=== PATIENT | male | born 1980 | race Caucasian/White ===

== ENCOUNTER 2019-06-11 01:17 | Emergency (ER) | payer OTHER, SELFPAY ==
[2019-06-11] VITALS (8 sets, daily range): BP systolic 127–178; BP diastolic 67–110; PULSE 48–58; RESP 16–20; TEMP 36.6; O2SAT 94–99; BMI 36.9
--- NOTE | 2019-06-11 01:20 | ED_ITS ---
Entered by Irina Lee, acting as scribe for Denisha Herman HPI - Abdominal Pain General: Chief Complaint: Abdominal Pain Stated Complaint: POSS KIDNEY STONE Time Seen by Provider: 06/11/19 01:20 History of Present Illness: HPI narrative: 38 yo m came to the er for rt flank pain. Pt states that he is sure he has a kidney stone, nausea and vomiting. Pt states that he has had them in the past. MD elicited complaint: abdominal pain and flank pain Pertinent past history: kidney stones Onset (ago): hour(s) Pain Consistency: constant Location: RLQ and R flank Severity: moderate Quality: other (pain) Radiation: none (lower abd and lower back) and back Migration to: no migration Exacerbating factors: nothing Relieving factors: nothing Associated Symptoms: Reports nausea and vomiting; Denies chills, dysuria, fever(s), hematuria and syncope Review of Systems General: Reports: other (negative unless marked) Const: Denies: fever, chills, body aches, fatigue, malaise or diaphoresis Eyes: Denies: change in vision or blurry vision ENMT: Denies: throat pain, painful swallowing, hoarseness, ear pain, ear discharge, Change in hearing or nasal discharge Card: Denies: chest pain, palpitations, irregular heart rhythm, syncope, pre- syncope, shortness of breath on exertion or shortness of breath when lying down Resp: Denies: shortness of breath, productive cough, non-productive cough, wheezing, coughing up blood or chest congestion GI: Reports: nausea and vomiting : Denies: flank pain, difficulty urinating, painful urination, urinary frequency, urinary urgency, decreased urine ouput, urinary incontinence or blood in urine Musc: Denies: neck pain, back pain, extremity pain, extremity swelling, joint pain, joint swelling, joint warmth or joint stiffness Skin/Breast: Denies: rash, skin tenderness or yellow skin Neuro: Denies: headache, numbness in extremities, weakness in extremities, changes in sensation, lack of coordination, difficulty walking, dizziness, vertigo or confusion Endo: Denies: excessive thirst, tired all the time, cold intolerance, excessive sweating, flushing or hot flashes Tony/Lymph: Denies: easy bruising, easy bleeding, petechiae or enlarged lymph nodes All/Imm: Denies: hives, throat swelling, tongue swelling, facial swelling or acute wheezing PFSH ED PFSH: Statuses (acute, chronic, etc) shown below reflect problem list status as previously entered and may not be historically accurate Medical History (Updated 06/11/19 @ 04:28 by Denisha Herman) Kidney stones (Acute) Social History Smoking and tobacco status: never smoked Physical Exam Const: COMMON NORMALS: no apparent distress, oriented x3, no limitations, healthy appearing and well nourished EXAM LIMITATIONS: no altered mental status GENERAL APPEARANCE: cooperative, well kempt and well developed ORIENTATION/CONSCIOUSNESS: Yes awake HENMT: COMMON NORMALS: normocephalic, head/scalp atraumatic, hearing grossly normal bilaterally, external ears normal, EAC's normal, external nose normal and moist oral mucous membranes HEAD & SCALP: normal to inspection, normocephalic and atraumatic FACE & SINUS: normal facial exam and face symmetric NOSE: external nose normal and nares normal EXTERNAL EAR: Yes external ears normal EXTERNAL AUDITORY CANAL: EAC's normal MOUTH: oral and palatal mucosa normal and tongue normal Eye: COMMON NORMALS: PERRL, EOMs intact bilaterally, conjunctivae normal and no scleral icterus GENERAL EYE: normal appearance of both eyes and normal light reflex CONJUNCTIVA: Yes conjunctivae normal SCLERA: sclerae normal CORNEA: Yes corneas normal PUPIL: Yes PERRL DIRECT OPHTHALMOSCOPY: Yes normal light reflex Neck/C-Spine: COMMON NORMALS: full ROM, no lymphadenopathy, supple, no meningeal signs and no JVD GENERAL: Yes normal visual inspection and Yes trachea midline CERVICAL SPINE: Yes cervical ROM normal Chest: COMMONS NORMALS: inspection of chest normal and palpation of chest normal Resp: COMMON NORMALS: normal respiratory effort, no retractions, no use of accessory muscles and clear to auscultation bilaterally EFFORT & INSPECTION: Yes able to speak in complete sentences AUSCULTATION: clear to auscultation bilaterally Cardio: COMMON NORMALS: no JVD, regular rate, regular rhythm, S1 normal heart sound, S2 normal heart sound, no gallops, no clicks, no murmurs and no rub JUGULAR VENOUS DISTENTION: no JVD RATE: regular rate RHYTHM: regular rhythm HEART SOUNDS: S1 normal and S2 normal GI: COMMON NORMALS: soft to palpation, non-tender, no hepatosplenomegaly and no masses INSPECTION: Yes normal to inspection PALPATION: Yes soft and Yes no hepatosplenomegaly : COMMON NORMALS: Yes no CVA tenderness BLADDER/KIDNEY EXAM: Yes no CVA tenderness Back/Pelvis: COMMON NORMALS: no CVA tenderness, thoracic and lumbar spine normal to inspection, no thoracic nor lumbar tenderness and thoraco-lumbar ROM normal Extremity: COMMON NORMALS: normal to inspection, full ROM, normal capillary refill, no joint enlargement, no clubbing, cyanosis or edema and no calf tenderness Neuro: COMMON NORMALS: oriented x3, CN's II-XII intact bilaterally, moves all extremities, no focal motor deficits and no sensory deficits noted MENINGEAL SIGNS: Yes no meningeal signs Psych: COMMON NORMALS: mental status grossly normal, thought process normal, cooperative, affect normal, speech normal and activity/motor behavior normal APPEARANCE: Yes well kempt SPEECH: Yes normal speech THOUGHT PROCESS: normal thought process Skin: COMMON NORMALS: no rashes or lesions noted, skin turgor normal, no jaundice, no petechiae and no mottling GENERAL SKIN EXAM: no rashes or lesions noted and turgor normal Course Vital Signs: Vital signs: Vital Signs Temperature 97.9 F 06/11/19 01:27 Pulse Rate 55 L 06/11/19 05:54 Respiratory Rate 16 06/11/19 05:54 Blood Pressure 127/78 06/11/19 05:54 Pulse Oximetry 97 06/11/19 05:54 MDM - Abdominal Pain MDM Narrative: Medical decision making narrative: Patient comes in with right flank pain has a stone that is amenable to passing. He has no sign of infection and is not vomiting. I will go and discharge him home to follow-up with Dr. Nicholson he has no questions or concerns. Lab Data: Labs: Lab Results 06/11/19 06/11/19 06/11/19 Range/Units 01:33 01:33 03:38 WBC 7.7 (4.0-10.0) 10^3/ uL RBC 5.69 H (4.1-5.3) 10^6/u L Hgb 15.4 (11.7-16.6) g/dL Hct 45.6 (42.0-52.0) % MCV 80.1 (80-94) fL MCH 27.1 L (28.0-34.0) pg MCHC 33.8 (30.0-36.0) g/dL RDW 12.1 (12.1-15.1) % Plt Count 293 (130-400) 10^3/c mm MPV 8.6 (7.4-10.4) fL Neut % (Auto) 44.4 % Lymph % (Auto) 36.4 % [place] % (Auto) 15.3 % Eos % (Auto) 3.1 % Baso % (Auto) 0.4 % Neut # (Auto) 3.4 (1.8-7.7) 10^3/u L Lymph # (Auto) 2.8 (0.8-4.8) 10^3/u L [place] # (Auto) 1.2 H (0.2-0.9) 10^3/u L Eos # (Auto) 0.2 (0.0-0.8) 10^3/u L Baso # (Auto) 0.0 (0.0-0.1) 10^3/u L Nucleated RBC % (a uto) 0 % Nucleated RBCs # 0.0 /100WBC Sodium 135 L (136-145) mmol/L Potassium 3.4 L (3.5-5.1) mmol/L Chloride 98 (98-107) mmol/L Carbon Dioxide 23 (22-29) mmol/L Anion Gap 17.4 (5-19) BUN 13 (6-20) mg/dL Creatinine 0.9 (0.7-1.2) mg/dL GFR Calculation 93.9 (90-130) mL/min Glucose 121 H (74-109) mg/dL Calcium 9.4 (8.5-10.5) mg/dL Total Bilirubin 0.5 (0.15-1.2) mg/dL AST 26 (0-40) U/L ALT 23 (0-41) U/L Alkaline Phosphata se 66 (40-130) IU/L Total Protein 7.6 (6.6-8.7) g/dL Albumin 4.3 (3.5-5.2) g/dL Globulin 3.3 (1.3-4.6) g/dL Lipase 31 (13-60) U/L Urine Color Dark yellow (Yellow) Urine Appearance Hazy A (CLEAR) Urine pH 5 (5-7) Ur Specific Gravit y 1.025 (1.005-1.030) Urine Protein Trace (Negative) Urine Glucose (UA) Norm (Normal) Urine Ketones Negative (Negative) Urine Occult Blood 3+ H (Negative) Urine Nitrate Negative (Negative) Urine Bilirubin Neg (NEGATIVE) Urine Urobilinogen Norm (Negative) mg/dL Ur Leukocyte Génesis ase Negative (Negative) Urine RBC 40-50 H (0-2) /hpf Urine WBC 0-4 H (0-5) /hpf Ur Squamous Epith Cells 0-4 H (0-5) Urine Bacteria 4+ H (NONE) Hyaline Casts 0-4 H Urine Mucus 2+ Imaging Data ^: CT Abd/Pel: Radiologist's impression: [place] [address] CT Scan Report Signed Patient: Sylvester Asencio Unit #: [id number] : 1980 Age/Sex: 38 / M ADM Date: 06/11/19 Loc: ER Room/Bed: Attending Dr: Ordering Provider/Ordering MD: Denisha Herman DO Date of Service: 06/11/19 Procedure(s): CT kidney stone 46719 Accession Number(s): [id number] Report Number: [id number] PROCEDURE INFORMATION: Exam: CT Abdomen And Pelvis Without Contrast Exam date and time: 06/11/2019 1:45 AM Age: 38 years old Clinical indication: Abdominal pain; Flank; Right; Additional info: Flank/abdominal pain TECHNIQUE: Imaging protocol: Computed tomography of the abdomen and pelvis without contrast. Total DLP: 1933.33 mGy-cm Radiation optimization: All CT scans at this facility use at least one of these dose optimization techniques: automated exposure control; mA and/or kV adjustment per patient size (includes targeted exams where dose is matched to clinical indication); or iterative reconstruction. COMPARISON: CT Abdomen/Pelvis Renal [id number] 09/15/2016 10:19 AM FINDINGS: Lungs: Minimal stranding in the lung bases. No significant change in the 7 mm ovoid pleural-based density in the left lower lobe indicating a granuloma or focal scar. Liver: No suggestion of interval liver disease. Gallbladder and bile ducts: Still no calcified gallstones or biliary ductal dilatation. Pancreas: Continued fatty infiltration of the pancreatic head. Still no ductal dilatation. Spleen: Still no splenomegaly. Adrenals: Still no mass. Kidneys and ureters: Interval slight worsening of the mild right hydronephrosis and appearance of a small stone in the right lower kidney. Still no left hydronephrosis. Continued slight stranding in the perirenal fat bilaterally. Interval slight worsening of the right hydroureter and enlargement of the 3 x 2.2 mm stone in the distal right ureter. Stomach and bowel: Right adhesions still possible. No obstruction. Continued malrotation of the gut, although cecum still present in the right lower quadrant. No apparent mucosal thickening. Appendix: Still no appendicitis. Intraperitoneal space: Still no free air. Vasculature: Continued slight atherosclerosis. Still no aortic aneurysm. Lymph nodes: Interval slight enlargement of multiple mesenteric nodes. No new enlarged nodes elsewhere. Bladder: Unremarkable as visualized. Reproductive: Interval enlargement of the prostate to approximately 5 x 4.1 cm, with greater posterior protrusion of the right side of the prostate than on the left. Bones/joints: Stable compression fractures. Soft tissues: Interval increased prominence of the torturous vessels in the right inguinal canal suggesting possible development of a right varicocele. Continued small periumbilical hernia containing fat. CT/CT kidney stone [id number] IMPRESSION: 1. Interval enlargement of the 3 x 2.2 mm stone in the distal right ureter causing slight worsening of the right hydroureteronephrosis. Interval appearance of the small stone in the right lower kidney, also. 2. Possible interval development of a right varicocele. Interval prostatic enlargement, especially on the right. 3. Interval mesenteric adenopathy, significance unknown. Continued malrotation of the gut. Other findings detailed above. Radiation Dose CTDIVOL = (mGy): DLP = 1933.33 (mGy-cm) Dictated By: Mara Middleton MD Signed By: Mara Middleton MD Signed Date/Time: 06/11/19255 DD/ 3 Discharge Plan Discharge Patient Disposition: Home, Self-Care Clinical Impression: Kidney stones Condition: Stable Prescriptions: [place] 5-325 mg tablet 1 tab PO Q6H PRN (Reason: pain) 5 Days Qty: 20 RF: 0 Zofran 4 mg tablet 4 mg PO DAILY PRN (Reason: nausea and vomiting) 5 Days RF: 0 cefdinir 300 mg capsule 300 mg PO Q12H 10 Days Qty: 20 RF: 0 Discharge Orders: Discharge Order (Routine); Ordered 06/11/19 Ordered By: Denisha Herman Referrals: Dayne Nicholson MD [Physician] - 1-3 days Neel Camp MD [Family Provider] - Discharge Diet: Advance as tolerated Discharge Activity: Resume usual activity Patient Instructions: Kidney Stones (ED), Renal Colic (ED) Activity Restrictions/Additional Instructions: Please return to the ER immediately for any of the signs or symptoms listed on your discharge instruction sheets, worsening/changing of your symptoms, you are not getting better as quickly as expected, or for ANY other cause or concerns. Discharge Date/Time: 06/11/19 06:14 Coding Level of Care Code ED Corn Shucker for Chg Fwd Exam Problem Focused The documentation recorded by the Jesus alba Stephanie Lyn, accurately reflects the service I personally performed and the decisions made by Batsheva potter Eli N Jun 11, 2019 01:17
--- NOTE | 2019-06-11 01:26 | CTR_ITS ---
PROCEDURE INFORMATION: Exam: CT Abdomen And Pelvis Without Contrast Exam date and time: 06/11/2019 1:45 AM Age: 38 years old Clinical indication: Abdominal pain; Flank; Right; Additional info: Flank/abdominal pain TECHNIQUE: Imaging protocol: Computed tomography of the abdomen and pelvis without contrast. Total DLP: 1933.33 mGy-cm Radiation optimization: All CT scans at this facility use at least one of these dose optimization techniques: automated exposure control; mA and/or kV adjustment per patient size (includes targeted exams where dose is matched to clinical indication); or iterative reconstruction. COMPARISON: CT Abdomen/Pelvis Renal [id number] 09/15/2016 10:19 AM FINDINGS: Lungs: Minimal stranding in the lung bases. No significant change in the 7 mm ovoid pleural-based density in the left lower lobe indicating a granuloma or focal scar. Liver: No suggestion of interval liver disease. Gallbladder and bile ducts: Still no calcified gallstones or biliary ductal dilatation. Pancreas: Continued fatty infiltration of the pancreatic head. Still no ductal dilatation. Spleen: Still no splenomegaly. Adrenals: Still no mass. Kidneys and ureters: Interval slight worsening of the mild right hydronephrosis and appearance of a small stone in the right lower kidney. Still no left hydronephrosis. Continued slight stranding in the perirenal fat bilaterally. Interval slight worsening of the right hydroureter and enlargement of the 3 x 2.2 mm stone in the distal right ureter. Stomach and bowel: Right adhesions still possible. No obstruction. Continued malrotation of the gut, although cecum still present in the right lower quadrant. No apparent mucosal thickening. Appendix: Still no appendicitis. Intraperitoneal space: Still no free air. Vasculature: Continued slight atherosclerosis. Still no aortic aneurysm. Lymph nodes: Interval slight enlargement of multiple mesenteric nodes. No new enlarged nodes elsewhere. Bladder: Unremarkable as visualized. Reproductive: Interval enlargement of the prostate to approximately 5 x 4.1 cm, with greater posterior protrusion of the right side of the prostate than on the left. Bones/joints: Stable compression fractures. Soft tissues: Interval increased prominence of the torturous vessels in the right inguinal canal suggesting possible development of a right varicocele. Continued small periumbilical hernia containing fat. CT/CT kidney stone [id number] IMPRESSION: 1. Interval enlargement of the 3 x 2.2 mm stone in the distal right ureter causing slight worsening of the right hydroureteronephrosis. Interval appearance of the small stone in the right lower kidney, also. 2. Possible interval development of a right varicocele. Interval prostatic enlargement, especially on the right. 3. Interval mesenteric adenopathy, significance unknown. Continued malrotation of the gut. Other findings detailed above. Radiation Dose CTDIVOL = (mGy): DLP = 1933.33 (mGy-cm)
[2019-06-11 01:38] LABS: Basophils % 0.4 %; Eosinophils # 0.2 10^3/uL (0.0-0.8); Eosinophils % 3.1 %; Hematocrit 45.6 % (42.0-52.0); Hemoglobin 15.4 g/dL (11.7-16.6); Lymphocytes # 2.8 10^3/uL (0.8-4.8); Lymphocytes % 36.4 %; Mean Corpuscular HGB Conc 33.8 g/dL (30.0-36.0); Mean Corpuscular Hemoglobin 27.1 pg (28.0-34.0); Mean Corpuscular Volume 80.1 fL (80-94); Mean Platelet Volume 8.6 fL (7.4-10.4); Monocytes # 1.2 10^3/uL (0.2-0.9); Monocytes % 15.3 %; Neutrophils # 3.4 10^3/uL (1.8-7.7); Neutrophils % 44.4 %; Nucleated Red Blood Cells % 0 %; Platelet Count 293 10^3/cmm (130-400); Red Blood Count 5.69 10^6/uL (4.1-5.3); Red Cell Distribution Width 12.1 % (12.1-15.1); White Blood Count 7.7 10^3/uL (4.0-10.0)
[2019-06-11] MEDS: HYDROmorphone 1 mg/mL INJ 1 mL 0.5 MG IVP ×2 (01:45→02:09)
[2019-06-11] MEDS: ondansetron 2 mg/ML SDV 2 mL 4 MG IVP (01:47)
[2019-06-11] MEDS: sodium chloride 0.9% 1,000 ML 100 ML IV (01:47)
--- NOTE | 2019-06-11 01:52 | PC.NURSE ---
Introduced self to patient and initiated vital signs. Pt is A&O x 4 and agreeable. Pt states that the reason for the ER visit today is due to excessive perineal / flank pain. Pt states that pain is suspected to be a kidney stone since he has a history. Reassured patient of needs and will continue to monitor. Awaiting provider at bedside.
[2019-06-11 01:57] LABS: Alanine Aminotransferase 23 U/L (0-41); Albumin Level 4.3 g/dL (3.5-5.2); Alkaline Phosphatase 66 IU/L (40-130); Anion Gap 17.4 (5-19); Blood Urea Nitrogen 13 mg/dL (6-20); Calcium 9.4 mg/dL (8.5-10.5); Carbon Dioxide 23 mmol/L (22-29); Chloride 98 mmol/L (98-107); Globulin 3.3 g/dL (1.3-4.6); Glomerular Filtration Rate 93.9 mL/min (90-130); Glucose 121 mg/dL (74-109); Lipase 31 U/L (13-60); Potassium 3.4 mmol/L (3.5-5.1); Sodium 135 mmol/L (136-145); Total Bilirubin 0.5 mg/dL (0.15-1.2); Total Protein 7.6 g/dL (6.6-8.7)
[2019-06-11 03:22] LABS: Aspartate Amino Transferase 26 U/L (0-40)
[2019-06-11] MEDS: ketorolac 30 mg/mL INJ 10 MG IVP (03:54)
[2019-06-11 04:00] LABS: Bilirubin Urine Neg (NEGATIVE); Blood Urine 3+ (Negative); Glucose Urine UA Norm (Normal); Ketones Urine Negative (Negative); Leukocyte Esterase Urine Negative (Negative); Nitrate Urine Negative (Negative); Protein Urine Trace (Negative); Specific Gravity, Urine 1.025 (1.005-1.030); Urine Appearance Hazy (CLEAR); Urine Color Dark Yellow (Yellow); Urobilinogen Urine Norm (Negative); pH Urine 5 (5-7)
[2019-06-11 04:15] LABS: Bacteria Urine 4+; Mucus Urine 2+; RBC Urine 40-50 /hpf (0-2); Squamous Epithelial Cell Urine 0-4 (0-5); WBC Urine 0-4 /hpf (0-5)
[2019-06-11 04:16] LABS: Add Urine Culture? Yes; Hyaline Casts Urine 0-4
[2019-06-11] MEDS: HYDROcodone-acetaminophen 5-325 mg Tablet 1 TAB PO (06:00)
--- NOTE | 2019-06-12 13:13 | DCPLANNER ---
cancer registry manager had message to schedule a follow up appointment for patient with Dr. Nicholson. cancer registry manager called the office of Dr. Nicholson, spoke with Cinthia. cancer registry manager gave clinic patients information. cancer registry manager was told that patients information would be printed and given to Taylor for review. Clinic will call patient with appointment information, case finishing machine adjuster will call for appointment information.
--- NOTE | 2019-06-13 12:27 | DCPLANNER ---
Patient has a follow up appointment scheduled for , June 20, [address] at 7:[address] Nicholson, clinic will call patient with appointment information.
== END 2019-06-11 06:14 | disposition home or self-care (01) ==
PROVIDERS: Emergency Provider Emergency Medicine; Family Provider Family Medicine
DX: N20.0 Calculus of kidney (principal); Z87.442 Personal history of urinary calculi
CPT/HCPCS: 12001; 36415; 74176; 80053; 81001; 83690; 85025; 87086; 96374; 99283; 99284; J1170; J1885; J2405; J7030

== ENCOUNTER 2019-06-13 07:58 | Outpatient (CLI) | payer OTHER, SELFPAY ==
--- NOTE | 2019-06-13 08:00 | XR_ITS ---
WS: [id number] KUB, 06/13/2019 Clinical Data: KIDNEY STONE Comparison: CT abdomen and pelvis, 06/11/2019 Findings: No abnormal intraabdominal masses or calcifications are seen. There is no dilatated small bowel or ev idence of obstruction. There is a large amount of fecal material throughout the colon. XR/XR KUB [id number] Impression: Negative for definite renal or ureteral calculi.
== END 2019-06-13 07:59 | disposition home or self-care (01) ==
LOC: RAD 08:02
PROVIDERS: Family Provider Family Medicine; PCP Family Medicine; Visit Provider Urology
DX: N20.0 Calculus of kidney (principal)
CPT/HCPCS: 74018; 81001

== ENCOUNTER 2019-06-20 08:51 | Outpatient (CLI) | payer OTHER, SELFPAY ==
--- NOTE | 2019-06-20 08:45 | XR_ITS ---
WS: [id number] KUB, 06/20/2019 Clinical Data: calculus of ureter Comparison: KUB, 06/13/2019 Findings: No abnormal intraabdominal masses or calcifications are seen. There is no dilatated small bowel or ev idence of obstruction. There is a large amount of fecal material throughout the colon. There are phleboliths on the right si de of the true colon. XR/XR KUB 01905 Impression: Negative KUB.
== END 2019-06-20 08:52 | disposition home or self-care (01) ==
PROVIDERS: Family Provider Family Medicine; PCP Family Medicine; Visit Provider Urology
DX: N20.1 Calculus of ureter (principal)
CPT/HCPCS: 74018; 81001

== ENCOUNTER 2019-07-04 08:24 | Outpatient (CLI) | payer OTHER, SELFPAY ==
--- NOTE | 2019-07-04 08:15 | XR_ITS ---
WS: [id number] XR KUB [id number] REASON FOR EXAM: ureteral stone FINDINGS: Comparisons were made to June 20, 2019. There is again noted fecal stasis in the rectum and left colon. There is no definite stones in the region of the kidneys ureter and bladder. There is evidence of phleboliths on the right unchanged since previous exam. XR/XR KUB 04507 IMPRESSION: Fecal stasis. No definite calculi identified.
== END 2019-07-04 08:25 | disposition home or self-care (01) ==
PROVIDERS: Family Provider Family Medicine; PCP Family Medicine; Visit Provider Urology
DX: N20.1 Calculus of ureter (principal); K59.00 Constipation, unspecified
CPT/HCPCS: 74018; 81001

== ENCOUNTER 2021-03-31 07:33 | Emergency (ER) | payer OTHER, SELFPAY ==
--- NOTE | 2021-03-31 07:43 | ED_ITS ---
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 Patient is unsure of his last tetanus shot. Onset (ago): minute(s) Location: right and upper extremity (Fifth finger) Radiation: non-radiation Severity: mild Relieving factors: none Exacerbating factors: none Associated symptoms: Reports no associated symptoms PFSH ED PFSH: Medical History (Updated 03/31/21 @ 07:46 by Semaj Robledo DO) Kidney stones Right ureteral stone Spontaneously passed right distal ureteral stone June 2019. Stone risk reduction strategies going forward emphasized. Family History Mother Breast cancer Father Hyperlipidemia Social History (Updated 07/04/19 @ 09:18 by India Gillette RN) Smoking and tobacco status: never smoked Alcohol intake: current Alcohol intake frequency: holidays/special occasions only Marital status: Current occupational status: employed History of recent travel: No Physical Exam Extremity: OTHER: Avulsion flap laceration about 1 cm in length Minimal active bleeding Procedures Laceration Laceration 1: Site: hand (Right fifth finger) Side (If applicable): right Size (cm): 1 Description: flap Depth: simple, single layer Skin layer closed with: other (Dermabond) MDM - General Adult MDM Narrative: Medical decision making narrative: Direct pressure held. Tetanus was updated. Dermabond used to close wound wound dressed follow-up as needed no restrictions to work. Discharge Plan Discharge Patient Disposition: Home Clinical Impression: Laceration of finger of right hand Condition: Stable Prescriptions: No Action ibuprofen 200 mg capsule 200 mg PO Q6H PRNRF: 0 Discharge Orders: Discharge ED (Routine); Ordered 03/31/21 Ordered By: Semaj Robledo Referrals: Neel Camp MD [Primary Care Provider] - Discharge Diet: Usual diet Discharge Activity: Resume usual activity Patient Instructions: Opioid Safety Activity Restrictions/Additional Instructions: Follow-up with employee health as needed. Keep wound clean and dry and covered for the next 5 to 7 days. Return if there is any signs of infection. Coding Level of Care Code ED Plans Examiner for Dilmag Fwd
[2021-03-31] MEDS: tetanus-dipt-pertussis 0.5 mL SDV IM (08:05)
== END 2021-03-31 08:11 | disposition home or self-care (01) ==
PROVIDERS: Emergency Provider Family Medicine; PCP Family Medicine
DX: S61.216A Laceration without foreign body of right little finger without damage to nail, initial encounter (principal); W25.XXXA Contact with sharp glass, initial encounter; Z23 Encounter for immunization
CPT/HCPCS: 12001; 90471; 90715; 99281

== ENCOUNTER 2021-05-06 19:37 | Emergency (ER) | payer OTHER, SELFPAY ==
[2021-05-06 19:47] VITALS: BP 152/82; PULSE 81; RESP 16; TEMP 37.2; O2SAT 97; BMI 40.1
--- NOTE | 2021-05-06 19:53 | XRR_ITS ---
PROCEDURE INFORMATION: Exam: XR Chest Exam date and time: 05/06/2021 7:53 PM Age: 40 years old Clinical indication: Pain; Left-sided; Additional info: Cp TECHNIQUE: Imaging protocol: XR of the chest. Views: 1 view. COMPARISON: CR XR KUB [id number] 07/04/2019 8:32 AM FINDINGS: Lungs: Unremarkable. No consolidation. Pleural spaces: Unremarkable. No pleural effusion. No pneumothorax. Heart/Mediastinum: Unremarkable. No cardiomegaly. Bones/joints: Unremarkable. XR/XR chest 1V portable [id number] IMPRESSION: No acute findings.
--- NOTE | 2021-05-06 19:54 | ECG_ITS ---
[facility] Test Date: 2021-05-06 Pat Name: Sylvester Asencio Department: Room: Gender: Male Disability Counselor: : 1980 Requested By: Errol Mai Order Number: [id number] Johnson MD: Anjali Ro M.D. Measurements Intervals [place] Rate: 84 P: 27 IN: 159 QRS: 21 QRSD: 102 T: 36 QT: 343 QTc: 407 Interpretive Statements SINUS RHYTHM INCOMPLETE RIGHT BUNDLE BRANCH BLOCK [90+ ms QRS DURATION, TERMINAL R IN V1/V2, 40+ ms S IN I/aVL/V4/V5/V6] No previous ECG available for comparison Electronically Signed On 05-08-2021 17:11:25 FORMULATION TECHNICIAN by Anjali Ro M.D. [email or web address]
--- NOTE | 2021-05-06 20:27 | ED_ITS ---
Documented by User: DANIAL Wright 05/06/21 20:35 HPI - Chest Pain General: Chief Complaint: Chest Pain Stated Complaint: Chest Pain Time Seen by Provider: 05/06/21 20:19 History of Present Illness: HPI narrative: Patient is a 40-year-old male comes to the ED with chest pain. Patient says just prior to arrival he was at the movie theater's eating some popcorn having some soda and all of a sudden he had a very sharp and aching pain in his chest that was located on the left side of chest. Denies any diaphoresis, nausea or vomiting. Intense chest pain lasted for about 15 minutes. Now he says his chest pain is kind of a dull ache and a lot more mild. He has never had any chest pain like this before. He reports some increasing shortness of breath for the past 2 weeks as well. Denies any cough or hemoptysis. Patient denies any recent contacts with anybody with COVID-19 and he is fully vaccinated for COVID-19. Associated symptoms: Reports dyspnea (Increasing over the last 2 weeks.); Deny abdominal pain, fever(s), nausea, palpitations or vomiting Review of Systems Const: Denies: fever(s), chills or fatigue Eyes: Denies: change in vision or eye discomfort ENMT: Denies: throat pain, odynophagia, nasal discharge or nasal congestion Card: Reports: chest pain; Denies: palpitations, edema, swelling of feet/ankles, dyspnea on exertion or orthopnea Resp: Reports: dyspnea (Increasing over the last 2 weeks.); Denies: productive cough or non-productive cough GI: Denies: abdominal pain, nausea, vomiting, diarrhea, constipation or hematochezia : Denies: flank pain, difficulty urinating, dysuria or hematuria Musc: Denies: neck pain, back pain or extremity swelling Skin/Breast: Denies: rash or new lesions Neuro: Denies: headache(s), numbness in extremities or weakness in extremities [facility] ED PFSH: Medical History (Updated 05/07/21 @ 00:19 by Nehemiah Drake MD) Kidney stones Right ureteral stone Spontaneously passed right distal ureteral stone June 2019. Stone risk reduction strategies going forward emphasized. Family History Mother Breast cancer Father Hyperlipidemia Social History Smoking and tobacco status: never smoked Alcohol intake: current Alcohol intake frequency: holidays/special occasions only Marital status: Current occupational status: employed History of recent travel: No Physical Exam Const: COMMON NORMALS: no acute distress, patient oriented x3, healthy appearing and alert GENERAL APPEARANCE: cooperative and comfortable HENMT: COMMON NORMALS: normocephalic HEAD & SCALP: normocephalic MOUTH: Normal oral and palatal mucosa present THROAT: posterior oropharynx normal and uvula midline Neck/C-Spine: COMMON NORMALS: supple GENERAL: Yes normal visual inspection Resp: COMMON NORMALS: normal respiratory effort, No retractions, No use of accessory muscles and clear to auscultation bilaterally EFFORT & INSPECTION: Yes able to speak in complete sentences, No tachypneic, No respiratory distress and No labored AUSCULTATION: clear to auscultation bilaterally Cardio: COMMON NORMALS: regular rate, regular rhythm, S1 normal heart sound present, S2 normal heart sound present, No gallops present (Cardio), No clicks present (Cardio), No murmurs present (Cardio) and Peripheral pulses 2+ throughout RATE: regular rate RHYTHM: regular rhythm HEART SOUNDS: S1 normal heart sound present and S2 normal heart sound present PERIPHERAL PULSES: Peripheral pulses 2+ throughout GI: COMMON NORMALS: Normal to inspection, nondistended, normoactive bowel sounds present, Soft to palpation, non-tender and no masses PALPATION: Yes Soft to palpation : COMMON NORMALS: Yes no CVA tenderness BLADDER/KIDNEY EXAM: Yes no CVA tenderness Back/Pelvis: COMMON NORMALS: no CVA tenderness Extremity: COMMON NORMALS: normal to inspection Neuro: COMMON NORMALS: patient oriented x3 and moves all extremities SENSORIUM/ORIENTATION: Yes alert Skin: GENERAL SKIN EXAM: dry skin Course ED course: I performed initial history and physical exam of patient. Dr. Drake then took over care of patient and will be handling the rest of patient care and discharge plan. Vital Signs: Vital signs: Vital Signs Temperature 98.9 F 05/06/21 19:47 Pulse Rate 79 05/06/21 21:30 Respiratory Rate 18 05/06/21 21:30 Blood Pressure 124/85 05/06/21 21:30 Pulse Oximetry 98 05/06/21 21:30 MDM - Chest Pain Lab Data: Labs: Lab Results 05/06/21 05/06/21 05/06/21 21:30 21:30 21:30 WBC 7.8 10^3/uL 10^3/ uL (4.0-10.0) RBC 5.72 10^6/uL H 10 ^6/uL (4.1-5.3) Hgb 15.8 g/dL g/dL (11.7-16.6) Hct 47.0 % % (42.0-52.0) MCV 82.2 fl fl (80-94) MCH 27.6 pg L pg (28.0-34.0) MCHC 33.6 g/dL g/dL (30.0-36.0) RDW 12.3 % % (12.1-15.1) Plt Count 323 10^3/cmm 10^3 /cmm (130-400) MPV 8.8 fL fL (7.4-10.4) Neut % (Auto) 59.5 % % Lymph % (Auto) 27.3 % % [place] % (Auto) 9.8 % % Eos % (Auto) 2.4 % % Baso % (Auto) 0.5 % % Neut # (Auto) 4.61 10^3/uL 10^3 /uL (1.8-7.7) Lymph # (Auto) 2.1 10^3/uL 10^3/ uL (0.8-4.8) [place] # (Auto) 0.8 10^3/uL 10^3/ uL (0.2-0.9) Eos # (Auto) 0.2 10^3/uL 10^3/ uL (0.0-0.8) Baso # (Auto) 0.0 10^3/uL 10^3/ uL (0.0-0.1) Nucleated RBC % (a uto) 0 % % Nucleated RBCs # 0.0 /100WBC /100W BC D-Dimer Sodium 138 mmol/L mmol/L (136-145) Potassium 3.8 mmol/L mmol/L (3.5-5.1) Chloride 103 mmol/L mmol/L (98-107) Carbon Dioxide 22 mmol/L mmol/L (22-29) Anion Gap 16.8 (5-19) BUN 7 mg/dL mg/dL (6-20) Creatinine 0.8 mg/dL mg/dL (0.7-1.2) GFR Calculation 106.5 mL/min mL/m in (90-130) Glucose 99 mg/dL mg/dL (65-115) Calculated Osmolal ity 284 mOsm/kg L mOs m/kg (285-295) Calcium 8.5 mg/dL mg/dL (8.5-10.5) Total Bilirubin 0.3 mg/dL mg/dL (0.15-1.2) AST 26 U/L U/L (0-40) ALT 37 U/L U/L (0-41) Alkaline Phosphata se 60 IU/L IU/L (40-130) Troponin T Baselin e 6 ng/L ng/L (0-15) Troponin T 120 Min jackson Delta Troponin T Total Protein 7.4 g/dL g/dL (6.6-8.7) Albumin 4.1 g/dL g/dL (3.5-5.2) Globulin 3.3 g/dL g/dL (1.3-4.6) 05/06/21 05/06/21 21:30 23:35 WBC RBC Hgb Hct MCV MCH MCHC RDW Plt Count MPV Neut % (Auto) Lymph % (Auto) [place] % (Auto) Eos % (Auto) Baso % (Auto) Neut # (Auto) Lymph # (Auto) [place] # (Auto) Eos # (Auto) Baso # (Auto) Nucleated RBC % (a uto) Nucleated RBCs # D-Dimer <= 0.27 ug/mIFEU ug/mIFEU (0-0.59) Sodium Potassium Chloride Carbon Dioxide Anion Gap BUN Creatinine GFR Calculation Glucose Calculated Osmolal ity Calcium Total Bilirubin AST ALT Alkaline Phosphata se Troponin T Baselin e Troponin T 120 Min jackson 6.00 ng/L ng/L (0-15) Delta Troponin T 0 ABS# ABS# (0-10) Total Protein Albumin Globulin Discharge Plan Discharge Patient Disposition: Home Clinical Impression: Chest pain Condition: Stable Prescriptions: No Action ibuprofen 200 mg capsule 200 mg PO Q6H PRNRF: 0 Discharge Orders: Discharge ED (Routine); Ordered 05/07/21 Ordered By: Nehemiah Drake Referrals: Neel Camp MD [Primary Care Provider] - Discharge Diet: Advance as tolerated Discharge Activity: Resume usual activity Patient Instructions: Chest Pain (ED) Coding Level of Care Code ED Superintendent Menagerie for Ahsely Fwd Exam Comprehensive Documented by User: Nehemiah Drake MD 05/07/21 00:24 HPI - Chest Pain General: Chief Complaint: Chest Pain Stated Complaint: Chest Pain Time Seen by Provider: 05/06/21 20:19 PFSH ED PFSH: Medical History (Updated 05/07/21 @ 00:19 by Nehemiah Drake MD) Kidney stones Right ureteral stone Spontaneously passed right distal ureteral stone June 2019. Stone risk reduction strategies going forward emphasized. Family History Mother Breast cancer Father Hyperlipidemia Social History Smoking and tobacco status: never smoked Alcohol intake: current Alcohol intake frequency: holidays/special occasions only Marital status: Current occupational status: employed History of recent travel: No Course Vital Signs: Vital signs: Vital Signs Temperature 98.9 F 05/06/21 19:47 Pulse Rate 79 05/06/21 21:30 Respiratory Rate 18 05/06/21 21:30 Blood Pressure 124/85 05/06/21 21:30 Pulse Oximetry 98 05/06/21 21:30 MDM - Chest Pain MDM Narrative: Medical decision making narrative: Patient presents for chest pains atypical in nature is been pain-free here initial repeat troponins are both negative chest x-ray is negative D-dimer is negative no signs of pulmonary embolism or acute coronary syndrome. Patient has no signs of dissection. He does have appoint with his PCP next week on Monday on he likely needs an outpatient stress test he is return if worsening. Lab Data: Labs: Lab Results 05/06/21 05/06/21 05/06/21 21:30 21:30 21:30 WBC 7.8 10^3/uL 10^3/ uL (4.0-10.0) RBC 5.72 10^6/uL H 10 ^6/uL (4.1-5.3) Hgb 15.8 g/dL g/dL (11.7-16.6) Hct 47.0 % % (42.0-52.0) MCV 82.2 fl fl (80-94) MCH 27.6 pg L pg (28.0-34.0) MCHC 33.6 g/dL g/dL (30.0-36.0) RDW 12.3 % % (12.1-15.1) Plt Count 323 10^3/cmm 10^3 /cmm (130-400) MPV 8.8 fL fL (7.4-10.4) Neut % (Auto) 59.5 % % Lymph % (Auto) 27.3 % % [place] % (Auto) 9.8 % % Eos % (Auto) 2.4 % % Baso % (Auto) 0.5 % % Neut # (Auto) 4.61 10^3/uL 10^3 /uL (1.8-7.7) Lymph # (Auto) 2.1 10^3/uL 10^3/ uL (0.8-4.8) [place] # (Auto) 0.8 10^3/uL 10^3/ uL (0.2-0.9) Eos # (Auto) 0.2 10^3/uL 10^3/ uL (0.0-0.8) Baso # (Auto) 0.0 10^3/uL 10^3/ uL (0.0-0.1) Nucleated RBC % (a uto) 0 % % Nucleated RBCs # 0.0 /100WBC /100W BC D-Dimer Sodium 138 mmol/L mmol/L (136-145) Potassium 3.8 mmol/L mmol/L (3.5-5.1) Chloride 103 mmol/L mmol/L (98-107) Carbon Dioxide 22 mmol/L mmol/L (22-29) Anion Gap 16.8 (5-19) BUN 7 mg/dL mg/dL (6-20) Creatinine 0.8 mg/dL mg/dL (0.7-1.2) GFR Calculation 106.5 mL/min mL/m in (90-130) Glucose 99 mg/dL mg/dL (65-115) Calculated Osmolal ity 284 mOsm/kg L mOs m/kg (285-295) Calcium 8.5 mg/dL mg/dL (8.5-10.5) Total Bilirubin 0.3 mg/dL mg/dL (0.15-1.2) AST 26 U/L U/L (0-40) ALT 37 U/L U/L (0-41) Alkaline Phosphata se 60 IU/L IU/L (40-130) Troponin T Baselin e 6 ng/L ng/L (0-15) Troponin T 120 Min jackson Delta Troponin T Total Protein 7.4 g/dL g/dL (6.6-8.7) Albumin 4.1 g/dL g/dL (3.5-5.2) Globulin 3.3 g/dL g/dL (1.3-4.6) 05/06/21 05/06/21 21:30 23:35 WBC RBC Hgb Hct MCV MCH MCHC RDW Plt Count MPV Neut % (Auto) Lymph % (Auto) [place] % (Auto) Eos % (Auto) Baso % (Auto) Neut # (Auto) Lymph # (Auto) [place] # (Auto) Eos # (Auto) Baso # (Auto) Nucleated RBC % (a uto) Nucleated RBCs # D-Dimer <= 0.27 ug/mIFEU ug/mIFEU (0-0.59) Sodium Potassium Chloride Carbon Dioxide Anion Gap BUN Creatinine GFR Calculation Glucose Calculated Osmolal ity Calcium Total Bilirubin AST ALT Alkaline Phosphata se Troponin T Baselin e Troponin T 120 Min jackson 6.00 ng/L ng/L (0-15) Delta Troponin T 0 ABS# ABS# (0-10) Total Protein Albumin Globulin Imaging Data^: CXR: Attestation: I personally reviewed and interpreted this imaging study as follows: My impression: [employer] [place] [address] XRay Report Signed Patient: Sylvester Asencio Unit #: [id number] : 1980 Age/Sex: 40 / M ADM Date: 05/06/21 Loc: ER Room/Bed: Attending Dr: Ordering Provider/Ordering MD: Errol Mai Date of Service: 05/06/21 Procedure(s): XR chest 1V portable [id number] Accession Number(s): [id number] Report Number: [id number] PROCEDURE INFORMATION: Exam: XR Chest Exam date and time: 05/06/2021 7:53 PM Age: 40 years old Clinical indication: Pain; Left-sided; Additional info: Cp TECHNIQUE: Imaging protocol: XR of the chest. Views: 1 view. COMPARISON: CR XR KUB [id number] 07/04/2019 8:32 AM FINDINGS: Lungs: Unremarkable. No consolidation. Pleural spaces: Unremarkable. No pleural effusion. No pneumothorax. Heart/Mediastinum: Unremarkable. No cardiomegaly. Bones/joints: Unremarkable. XR/XR chest 1V portable [id number] IMPRESSION: No acute findings. Dictated By: Eugene Morales Signed By: Eugene Morales Signed Date/Time: 05/06/212025 DD/ 52 EKG Data^: EKG 1: Attestation: I personally reviewed and interpreted this EKG as follows: EKG interpretation date: 05/06/21 EKG interpretation time: 19:45 Interpretation: nsr hr [address] or t wave abnormalities qrs 102 qtc 384 EKG 2: Attestation: I personally reviewed and interpreted this EKG as follows: EKG interpretation date: 05/06/21 EKG interpretation time: 22:00 Interpretation: Normal sinus rhythm heart rate [address] or T wave abnormalities QRS 102 QTC 377 Discharge Plan Discharge Patient Disposition: Home Clinical Impression: Chest pain Condition: Stable Prescriptions: No Action ibuprofen 200 mg capsule 200 mg PO Q6H PRNRF: 0 Discharge Orders: Discharge ED (Routine); Ordered 05/07/21 Ordered By: Nehemiah Drake Referrals: Neel Camp MD [Primary Care Provider] - Discharge Diet: Advance as tolerated Discharge Activity: Resume usual activity Patient Instructions: Chest Pain (ED) Coding Level of Care Code ED Superintendent Menagerie for Chg Fwd Exam Comprehensive
[2021-05-06] MEDS: aspirin 81 mg Chew Tablet 324 MG PO (21:27)
[2021-05-06 21:30] VITALS: BP 124/85; PULSE 79; RESP 18; O2SAT 98
[2021-05-06 21:45] LABS: Basophils % 0.5 %; Eosinophils # 0.2 10^3/uL (0.0-0.8); Eosinophils % 2.4 %; Hemoglobin 15.8 g/dL (11.7-16.6); Lymphocytes # 2.1 10^3/uL (0.8-4.8); Lymphocytes % 27.3 %; Mean Corpuscular HGB Conc 33.6 g/dL (30.0-36.0); Mean Corpuscular Hemoglobin 27.6 pg (28.0-34.0); Mean Corpuscular Volume 82.2 fl (80-94); Mean Platelet Volume 8.8 fL (7.4-10.4); Monocytes # 0.8 10^3/uL (0.2-0.9); Monocytes % 9.8 %; Neutrophils # 4.61 10^3/uL (1.8-7.7); Neutrophils % 59.5 %; Nucleated Red Blood Cells % 0 %; Platelet Count 323 10^3/cmm (130-400); Red Blood Count 5.72 10^6/uL (4.1-5.3); Red Cell Distribution Width 12.3 % (12.1-15.1); White Blood Count 7.8 10^3/uL (4.0-10.0)
--- NOTE | 2021-05-06 21:54 | ECG_ITS ---
[facility] Test Date: 2021-05-06 Pat Name: Sylvester Asencio Department: Room: Gender: Male Medical Research Associate: : 1980 Requested By: Errol Mai Order Number: [id number] Johnson MD: Anjali Ro M.D. Measurements Intervals [place] Rate: 73 P: 20 DE: 159 QRS: 27 QRSD: 102 T: 34 QT: 351 QTc: 388 Interpretive Statements SINUS RHYTHM POSSIBLE RIGHT VENTRICULAR CONDUCTION DELAY [RSR (QR) IN V1/V2] No previous ECG available for comparison Electronically Signed On 05-08-2021 17:15:43 PILL MAKER by Anjali Ro M.D. [email or web address] [email or web address] community hospitalCutefundgrand lake joint township district memorial hospital.T[employer]/store/OM/[id number]
[2021-05-06 21:58] LABS: D Dimer <= 0.27 ug/mIFEU (0-0.59)
[2021-05-06 22:05] LABS: Troponin(5th) Baseline 6 ng/L (0-15)
[2021-05-06 22:07] LABS: Alanine Aminotransferase 37 U/L (0-41); Albumin Level 4.1 g/dL (3.5-5.2); Alkaline Phosphatase 60 IU/L (40-130); Anion Gap 16.8 (5-19); Aspartate Amino Transferase 26 U/L (0-40); Blood Urea Nitrogen 7 mg/dL (6-20); Calcium 8.5 mg/dL (8.5-10.5); Carbon Dioxide 22 mmol/L (22-29); Chloride 103 mmol/L (98-107); Globulin 3.3 g/dL (1.3-4.6); Glomerular Filtration Rate 106.5 mL/min (90-130); Glucose 99 mg/dL (65-115); Osmolality Calculated 284 mOsm/kg (285-295); Potassium 3.8 mmol/L (3.5-5.1); Sodium 138 mmol/L (136-145); Total Bilirubin 0.3 mg/dL (0.15-1.2); Total Protein 7.4 g/dL (6.6-8.7)
[2021-05-07 00:04] LABS: Troponin 5 2HR Delta 0 ABS# (0-10)
[2021-05-07 00:25] VITALS: BP 122/81; PULSE 80; RESP 16; TEMP 37.1; O2SAT 97
== END 2021-05-07 00:51 | disposition home or self-care (01) ==
PROVIDERS: Physician Assistant; Emergency Provider Emergency Medicine; PCP Family Medicine
DX: R07.9 Chest pain, unspecified (principal)
CPT/HCPCS: 71045; 80053; 84484; 85025; 85378; 93005; 99284

== ENCOUNTER 2021-05-28 09:20 | Emergency (ER) | payer OTHER, SELFPAY ==
[2021-05-28 09:27] VITALS: BP 109/86; PULSE 99; RESP 18; TEMP 37.3; O2SAT 95; BMI 41.3
--- NOTE | 2021-05-28 09:39 | W.ED.COVID ---
HPI - COVID General: Chief Complaint: COVID symptoms Stated Complaint: COVID +/SOB,MUSCLE ACHES Time Seen by Provider: 05/28/21 09:23 Triage information: Has fever, cough or shortness of breath. Exposure to COVID + person last 14 days History of Present Illness: HPI Narrative: 40-year-old male presents to the emergency room with mild COVID symptoms. 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 He has been mildly short of breath at times and low-grade fever. At home he thought he had some oxygen sats on a finger monitor that were hovering around 90% here he has been 95 to 97% on room air. He has had some myalgias as well but overall the symptoms have are relatively mild he has been vaccinated. He tested positive at [facility]. complaint: known COVID positive Prior covid testing: yes, results known Prior testing date: 05/27/21 COVID 19 common symptoms: positive fever(s), chills, cough, non-productive cough, dyspnea, fatigue and body aches; negative throat pain, nasal congestion, nausea, vomiting or diarrhea COVID 19 other sytmptoms: negative chest pain or requiring oxygen Onset (ago): day(s) (3) Severity: mild Pertinent comorbid conditions: obesity Treatment prior to arrival: acetaminophen and breathing treatments COVID Results: No Data to Display Review of Systems Const: Reports: fever(s), chills, body aches and fatigue ENMT: Denies: throat pain, ear or mastoid pain, nasal discharge or nasal congestion Card: Denies: chest pain, edema, dyspnea on exertion or orthopnea Resp: Reports: dyspnea and non-productive cough GI: Denies: abdominal pain, nausea, vomiting, hematemesis, coffee ground emesis, diarrhea, constipation, bloating, hematochezia or melena : Denies: flank pain, dysuria, urinary frequency or urinary urgency Skin/Breast: Denies: rash or pruritus [facility] ED PFSH: Medical History (Updated 05/28/21 @ 10:28 by Semaj Robledo DO) Kidney stones Right ureteral stone Spontaneously passed right distal ureteral stone June 2019. Stone risk reduction strategies going forward emphasized. Family History Mother Breast cancer Father Hyperlipidemia Social History Smoking and tobacco status: never smoked Alcohol intake: current Alcohol intake frequency: holidays/special occasions only Marital status: Current occupational status: employed History of recent travel: No Physical Exam Const: COMMON NORMALS: no acute distress GENERAL APPEARANCE: cooperative and comfortable ORIENTATION/CONSCIOUSNESS: Yes awake, Yes oriented to person, Yes oriented to place and Yes oriented to time HENMT: COMMON NORMALS: normocephalic, atraumatic and hearing grossly normal bilaterally HEAD & SCALP: normocephalic and atraumatic Neck/C-Spine: COMMON NORMALS: no JVD Resp: COMMON NORMALS: normal respiratory effort, No retractions and No use of accessory muscles AUSCULTATION: wheezes (Mild) expiratory wheezes Cardio: COMMON NORMALS: no JVD, regular rate, regular rhythm and No murmurs present (Cardio) RATE: regular rate RHYTHM: regular rhythm GI: COMMON NORMALS: Soft to palpation and No hepatosplenomegaly present AUSCULTATION: Yes normoactive bowel sounds PALPATION: Yes Soft to palpation, No Tenderness to palpation present (GI), No Guarding due to palpation present (GI) and Yes No hepatosplenomegaly present Extremity: COMMON NORMALS: normal to inspection, capillary refill normal, no clubbing, cyanosis or edema, no calf tenderness and no pedal edema Neuro: SENSORIUM/ORIENTATION: Yes oriented to person, Yes oriented to place and Yes oriented to time Skin: COMMON NORMALS: no rashes or lesions noted GENERAL SKIN EXAM: no rashes or lesions noted Course Vital Signs: Vital signs: Vital Signs Temperature 98.9 F 05/28/21 12:55 Pulse Rate 112 H 05/28/21 12:55 Respiratory Rate 20 H 05/28/21 12:55 Blood Pressure 130/84 05/28/21 12:55 Pulse Oximetry 95 05/28/21 14:48 MDM - COVID COVID Results: No Data to Display Monoclonal Antibody - ED Inclusion/Exclusion Criteria age >/= 12 years and weight >/= 40kg /88lbs obesity (BMI >25 or 85%til for age) Patient education patient/family/caregiver received/reviewed fact sheet, Emergency Use Authorization/unapproved drug status discussed with patient/family/caregiver, alternatives to this treatment discussed with patient/family/caregiver, risks and benefits of medication reviewed with patient/family/caregiver, patient/family/caregiver given opportunity for questions, which were answered and patient consents to receiving Monoclonal Antibody Treatment Plan for treatment Meets criteria for Monoclonal Antibody infusion Where are the positive COVID test results, if positive?: Scanned into Expanse Ordering Monoclonal Antibody infusion for today Other information Results of COVID to be obtained from outside clinic and scanned to chart Discharge Plan Discharge Patient Disposition: Home Clinical Impression: COVID-19 Condition: Stable Prescriptions: No Action ibuprofen 200 mg Tablet 600 mg PO Q6H PRN (Reason: pain/fever) RF: 0 albuterol sulfate 90 mcg/actuation HFA aerosol inhaler 2 puff INHALATION Q4H PRN (Reason: Shortness Of Breath) RF: 0 Discharge Orders: Discharge ED (Routine); Ordered 05/28/21 Ordered By: Semaj Robledo Referrals: Neel Camp MD [Primary Care Provider] - Discharge Diet: Usual diet Discharge Activity: Resume usual activity Patient Instructions: COVID-19 (Coronavirus Disease 2019) (ED), Opioid Safety Activity Restrictions/Additional Instructions: Maintain self quarantine until released per health department guidelines or or employee health. If you have any worsening or change symptoms return to the emergency room. Coding Level of Care Code ED Weather Forecaster for Ashely Stewart Exam Comprehensive
--- NOTE | 2021-05-28 10:34 | PC.NURSE ---
Pt became restless and pulling at BiPAP and monitoring equipment. Cardiac leads were taken off by pt and will be restarted as pt calms. aware.
[2021-05-28 11:01] VITALS: BP 120/89; PULSE 104; RESP 13; O2SAT 95
[2021-05-28 12:00] VITALS: BP 111/82; PULSE 101; RESP 15; O2SAT 95
[2021-05-28 12:31] VITALS: RESP 15; O2SAT 95
[2021-05-28 12:55] VITALS: BP 130/84; PULSE 112; RESP 20; TEMP 37.2; O2SAT 94
[2021-05-28 14:48] VITALS: O2SAT 95
== END 2021-05-28 12:56 | disposition home or self-care (01) ==
PROVIDERS: Emergency Provider Family Medicine; PCP Family Medicine
DX: U07.1 COVID-19 (principal)
CPT/HCPCS: 96365; 99283

== ENCOUNTER 2021-07-12 07:11 | Outpatient (CLI) | payer OTHER, SELFPAY ==
[2021-07-12 07:28] VITALS: BMI 41.3
--- NOTE | 2021-07-12 08:18 | ECG_ITS ---
[facility] Test Date: 2021-07-12 Pat Name: Sylvester Asencio Department: Room: Gender: Male Roll Filler: Miguelina Fuentes : 1980 Requested By: Kashif Paredes Order Number: [id number] Johnson MD: Anjali Ro M.D. Interpretive Statements NAME OF STUDY: EXERCISE SESTAMIBI STRESS TEST INDICATION: Chest Pain at rest Baseline blood pressure of 130/77 mm Hg, heart rate of 76 beats per minute and oxygen saturation of 97%. EKG showed normal sinus rhythm, normal axis with normal ST-Ts. The patient exercised for 9 minutes 16 seconds on a standard Hermann protocol. Patient attained a maximum heart rate of 158 beats per minute(88% of the maximum predicted heart rate) with a blood pressure at the peak exercise of 213/103 mm Hg and oxygen saturation 92%. The EKG at the peak exercise revealed sinus tachycardia with no significant ST-T wave changes. Patient did not have any chest pain or any significant arrhythmis with the exercise. The study was terminated due to exertional fatigue and shortness of breath. During the recovery phase, there were no new changes. Blood pressure at the end of the recovery phase was 145/78 mm Hg with a heart rate of 107 beats per minute and oxygen saturation 96%. CONCLUSION: 1. Normal EKG response to treadmill exercise. 2. No exercise-induced chest pain or cardiac arrhythmia 3. Excellent exercise tolerance, attained a maximum of 10.2 METs. Maximum VO2 of 35.7 mL/kg/min. 4. Baseline normal blood pressure with hypertensive response to exercise. 5. Perfusion scan will be documented separately. Electronically Signed On 07-13-2021 16:11:13 FISHING VESSEL MATE by Anjali Ro M.D. [email or web address] main campus [facility] center.[id number]
--- NOTE | 2021-07-12 08:19 | NMCV_ITS ---
NM helio perf SPECT r/s* [id number] Sylvester Asencio Age: 40 Gender: M : 1980 Exam Date: 07/12/2021 08:33 Ordering Phys: Kashif Shah MD Technologist: DARIO Cox Exam Location: [facility] Indications: CHEST PAIN AT REST STRESS TEST Please see separate stress test report in Ephiphany for full findings IMAGE PROTOCOL Rest/Stress 1 Exercise Day Radiopharmaceutical Dose (mCi) Administration Site Administered by Rest: Tc-99m 10.9 IV DARIO Melchor Sestamibi Stress:Tc-99m 33.0 IV DARIO Melchor Sestamibi Rest: 12-Jul-2021 60 Discovery 630 Stress: 12-Jul-2021 15 Discovery 630 Radiopharmaceutical was injected at 86 % maximum heart rate. Images obtained in supine and prone position. SPECT RESULTS Technical Quality: Excellent Raw Data Analysis: Normal Image Corrections: No attenuation or motion correction applied Summed Stress Score: 0 Summed Rest Score: 1 Summed Difference Score: 0 PERFUSION FINDINGS SPECT images demonstrate homogeneous tracer distribution throughout the myocardium. FUNCTIONAL RESULTS (calculated via Gated SPECT) Stress Image LV EF (%): 71 Stress EDV (mL):98 TID: 0.78 Stress ESV (mL):28 FUNCTIONAL FINDINGS: The left ventricle is normal in size. Transient Ischemia Dilatation of 0.78. There is normal left ventricular systolic function. The left ventricular ejection fraction is normal with a value of 71%. There is normal left ventricular wall thickening with no regional wall motion abnormality. IMPRESSIONS 1. Myocardial perfusion imaging is normal. 2. Overall left ventricular systolic function is normal without regional wall motion abnormalities. 3. The left ventricular ejection fraction is normal with a value of 71%. 4. Normal EKG response to treadmill exercise. Excellent exercise tolerance, attained a maximum of 10.2 METs. Refer to separate report for details. Anjali Ro MD (Electronically Signed) Final Date: 13 July 2021 16:12 S
[2021-07-12 09:41] VITALS: BP 145/78; PULSE 106
== END 2021-07-12 07:12 | disposition home or self-care (01) ==
PROVIDERS: PCP Family Medicine; Visit Provider Family Medicine
DX: R07.9 Chest pain, unspecified (principal)
CPT/HCPCS: 78452; 93017; A9500

== ENCOUNTER 2021-09-09 09:56 | Day surgery (SDC) | payer OTHER, SELFPAY ==
[2021-09-08 14:31] VITALS: BMI 41.6
[2021-09-09] VITALS (12 sets, daily range): BP systolic 125–159; BP diastolic 75–104; PULSE 68–100; RESP 12–22; TEMP 36.1–36.9; O2SAT 93–99
--- NOTE | 2021-09-09 10:05 | W.PM.OPSFHP ---
Same Day Surgery H&P Indication for Procedure/HPI DATE OF PROCEDURE: September 09, 2021 CHIEF COMPLAINT/INDICATIONFOR SURGICAL PROCEDURE: Umbilical hernia repair PREOP DIAGNOSIS: Umbilical hernia PLANNED PROCEDURE: Operation Date: 09/09/21 11:20 Proposed Procedures p Umbilical Hernia Repair with poss mesh/[id number]/ umbilical hernia K42.9(Not Applicable) - Horacio Stein MD Medications/Allergies* Home Medications Medication Instructions Recorded Confirmed Type albuterol sulfate 90 mcg/actuation 2 puff INHALATION Q4H PRN 05/28/21 09/08/21 History aerosol inhaler ibuprofen 200 mg tablet 600 mg PO Q6H PRN 05/28/21 09/08/21 History Allergies/Adverse Reactions Allergy/AdvReac Type Severity Reaction Status Date / Time No Known Allergies Allergy Verified 09/08/21 14:28 Pertinent History/Comorbid Conditions* Medical History (Updated 08/31/21 @ 08:45 by Horacio Stein MD) COVID-19 Kidney stones Right ureteral stone Spontaneously passed right distal ureteral stone June 2019. Stone risk reduction strategies going forward emphasized. Surgical History (Updated 08/31/21 @ 08:45 by Horacio Stein MD) History of shoulder surgery right History of tonsillectomy History of wisdom tooth extraction Family History (Updated 06/13/19 @ 08:39 by Taylor Knight LPN) Hyperlipidemia Father Breast cancer Mother Social History Smoking and tobacco status: never smoked Alcohol intake: current Alcohol intake frequency: holidays/special occasions only Marital status: Current occupational status: employed History of recent travel: No Pertinent Exam Findings oriented x 3 and regular rate & rhythm Recommendations Surgery/Procedure today Coding Level of Care Code Acute Clinical Application Specialist for Ashely Stewart
[2021-09-09] MEDS: sodium chloride 0.9% 1,000 ML 30 ML IV (10:40)
--- NOTE | 2021-09-09 10:51 | ANES.PREANE2 ---
Pre-Anesthetic Assessment Height/Weight: Height 1.75 m Weight 127.913 kg Temp Pulse Resp BP Pulse Ox 97.2 F L 90 18 135/87 97 09/09/21 10:28 09/09/21 10:28 09/09/21 10:28 09/09/21 10:28 09/09/21 10:28 Preop Diagnosis: Umbilical hernia Operation Date: 09/09/21 11:20 Proposed Procedures p Umbilical Hernia Repair with poss mesh/[id number]/ umbilical hernia K42.9(Not Applicable) - Horacio Stein MD Familial anesthetic complications: had problems having trouble breathing after tonsilectomy. Was Beta Ligia taken within 24 hours: N/A Was Clonidine taken within 24 hours: N/A Last intake: Intake Last Liquid Date 09/08/21 Last Liquid Time 23:00 Last Solid Date 09/08/21 Last Solid Time 20:00 Social No alcohol and No tobacco Exam alert, oriented x 3, clear to auscultation bilaterally and regular rate & rhythm Airway Submandibular: within normal limits Cervical ROM: within normal limits Mallampati: Class II Dentition: full and other History/ROS Other Pulmonary Shortness of Breath post covid respiratory isuue. random trouble breathing CV/HEM None reported None reported Hepatic None reported GI Gastroesophageal Reflux Disease (controlled) Metabolic Morbid Obesity Neuropsych None reported Anesthetic Plan ASA status: 2 Anesthesia: General Risk of > 500 ml blood loss (7ml/kg in children): No Medications/Allergies Home Medications Medication Instructions Recorded Confirmed Last Taken Type albuterol sulfate 90 mcg/actuation 2 puff INHALATION Q4H PRN 05/28/21 09/09/21 09/09/21 History aerosol inhaler ibuprofen 200 mg tablet 600 mg PO Q6H PRN 05/28/21 09/09/21 09/08/21 History Allergies Allergy/AdvReac Type Severity Reaction Status Date / Time No Known Allergies Allergy Verified 09/08/21 14:28 Current Medications Generic Name Dose Route Start Last Admin Trade Name Freq PRN Reason Stop Dose Admin Sodium Chloride 1,000 mls @ 30 mls/hr 09/09/21 10:00 09/09/21 10:40 Sodium Chloride 0.9% IV 09/10/21 09:59 30 mls/hr .Q24H PETER Administration PFSH Anesthesia Medical History (Updated 08/31/21 @ 08:45 by Horacio Stein MD) COVID-19 Kidney stones Right ureteral stone Spontaneously passed right distal ureteral stone June 2019. Stone risk reduction strategies going forward emphasized. Surgical History (Updated 08/31/21 @ 08:45 by Horacio Stein MD) History of shoulder surgery right History of tonsillectomy History of wisdom tooth extraction Family History Mother Breast cancer Father Hyperlipidemia Social History Smoking and tobacco status: never smoked Alcohol intake: current Alcohol intake frequency: holidays/special occasions only Marital status: Current occupational status: employed History of recent travel: No Data Anesthesia Cardiac Studies: Sestamibi Stress Test (Cardiology) 07/12/21
--- NOTE | 2021-09-09 11:46 | PM.OP ---
Operative Report Date of procedure: September 09, 2021 Pre-op diagnosis: Incarcerated umbilical hernia Post-op diagnosis: Incarcerated umbilical hernia measuring 1 cm containing omentum Procedure done: Open primary repair of incarcerated umbilical hernia Specimens removed/disposition: Omentum Surgeon: Horacio Stein Anesthesia: General Condition: stable Disposition: PACU Procedure: The patient was taken to the operating room and intubated under general anesthesia after IV antibiotic had been administered. The abdomen was prepped and draped in a sterile manner. A 2 cm longitudinal umbilical incision was made using a 15 blade, a hernial sac dissected out using electrocautery and dissection with hemostats. The hernial sac was opened and omentum was excised since it could not be reduced into the peritoneal cavity. The defect measured about 1 cm. Interrupted sutures using 0 Vicryl was used to close the hernial defect without any tension. The subcutaneous tissue was approximated using 3-0 Vicryl and skin was closed using running subcuticular 4-0 Monocryl sutures. Dermabond was applied and 20 mL of 0.25% Marcaine was infiltrated around the incision. A 2 x 2 gauze was placed within the umbilicus and sterile dressings were applied. The patient was extubated and transferred to recovery room in stable condition.
--- NOTE | 2021-09-09 12:08 | SUR.PHASEI ---
1156 PT TO PACU 5 SLEEPY WITH GOOD RESPIRATORY EFFORT, CHIN LIFT USED TO KEEP AIRWAY OPEN, PT QUICKLY AWAKES TO VOICE BUT THEN QUICKLY BACK TO SLEEP, PT DENIES PAIN AT THIS TIME, ABDOMEN LARGE SOFT WITH 1 DRESSING D/I IV TO LT HAND #20 WITH 500ML NS UP AT MOD RATE PER GRAVITY, ID BAND TO LT WRIST , PT ID'D WITH 2 IDENTIFIERS, BILAT SCDS ON AND WORKING. VSS.
[2021-09-09] MEDS: HYDROmorphone 1 mg/mL INJ 1 mL 0.5 MG IVP (12:20)
--- NOTE | 2021-09-09 12:23 | ANE.PACU2 ---
Inpatient post-anesthesia follow up: Airway intact: Yes Vital signs: Temperature 97.9 F Pulse Rate 88 Respiratory Rate 16 Blood Pressure 159/94 Pulse Oximetry 99 Oxygen Delivery Me thod Room Air Oxygen Flow Rate 8 Fraction of Inspir ed Oxygen Hydration adequate: Yes Nausea and vomiting: No Pain level: 3 Mental status: Baseline
== END 2021-09-09 13:24 | disposition home or self-care (01) ==
PROVIDERS: PCP Family Medicine; Visit Provider Surgery
PROC: (CPT 49587; principal; 2021-09-09 11:10)
DX: K42.0 Umbilical hernia with obstruction, without gangrene (principal); Z86.16 Personal history of COVID-19; K21.9 Gastro-esophageal reflux disease without esophagitis; Z82.49 Family history of ischemic heart disease and other diseases of the circulatory system; Z80.3 Family history of malignant neoplasm of breast
CPT/HCPCS: 49587; J0330; J0690; J1100; J1170; J2250; J2405; J2704; J3010; J3490; J7030

== ENCOUNTER 2024-07-02 13:34 | Outpatient (CLI) | payer OTHER, SELFPAY ==
--- NOTE | 2024-07-02 13:45 | MR_ITS ---
WS: [id number] MRI LEFT KNEE NONCONTRAST TECHNIQUE: Axial PD, coronal PD fat sat, coronal PD, sagittal PD, and sagittal PD fat-sat images obtained. CLINICAL INFORMATION: TEAR OF MENISCUS OF KNEE COMPARISON: None. FINDINGS: Distal quadriceps and patella tendons are intact. Hypertrophic patella. Normal ACL and PCL. Moderate suprapatellar effusion. Soft tissue edema along the joint line. Prepatellar and infrapatellar soft tissue edema. Advanced chondromalacia patella with full-thickness cartilage defects involving the medial facet advanced for a patient this age. Small amount of subchondral edema. Medial and lateral patellar retinaculum appear intact. Moderate to advanced joint space narrowing medial joint compartment with grade 3-4 chondromalacia. Medial and lateral collateral ligaments appear intact. Normal popliteal fossa. Small amount of subchondral cystic change along the medial tibial spine. Peripheral extrusion of the medial meniscus. Small amount of subchondral edema involving the medial tibial plateau. Suspected small radial tear involving the medial meniscus at the meniscal root. MR/MR knee LT wo con* [id number] IMPRESSION: 1. Advanced chondromalacia patella with subchondral edema and full-thickness c artilage defects involving the medial patella facet. This is advanced for patie nt this age. 2. Moderate suprasellar effusion. 3. ACL and PCL appear intact. 4. Peripheral extrusion with chronic appearing desiccation of the medial menis cus. Moderate to advanced medial compartment narrowing advanced for a patient t his age with grade 3-4 chondromalacia. Small amount of edema in the medial tibi al plateau. 5. Suspected small radial tear involving the medial meniscus at the meniscal r oot Outbridge grading: grade IV: full-thickness cartilage loss with underlying bone reactive changes
== END 2024-07-02 13:35 | disposition home or self-care (01) ==
LOC: RAD 13:35
PROVIDERS: PCP Family Medicine; Visit Provider Family Medicine
DX: S83.207A Unspecified tear of unspecified meniscus, current injury, left knee, initial encounter (principal); M22.42 Chondromalacia patellae, left knee; R93.6 Abnormal findings on diagnostic imaging of limbs; X58.XXXA Exposure to other specified factors, initial encounter
CPT/HCPCS: 73721

== ENCOUNTER 2024-07-04 05:57 | Day surgery (SDC) | payer OTHER, SELFPAY ==
[2024-07-04 06:06] VITALS: BP 132/94; PULSE 81; RESP 16; TEMP 36.4; O2SAT 95; BMI 42.8
[2024-07-04] MEDS: sodium chloride 0.9% 500 ML 999 ML IV (06:19)
--- NOTE | 2024-07-04 06:46 | P.HPUD_ITS ---
Surgery/Procedure H&P Update DATE OF PROCEDURE: July 04, 2024 DATE H&P PERFORMED: 06/05/24 H&P UPDATE INFORMATION: I have reviewed H&P completed within last 30 days, I have examined patient prior to procedure, No changes to prior documentation and H&P is in [facility] [place] [facility] EMR on date indicated PLANNED PROCEDURE: Operation Date: 07/04/24 07:00 Proposed Procedures p Colonoscopy 02249, G0105, Z12.11(Not Applicable) - Madan Do MD
--- NOTE | 2024-07-04 06:46 | W.PM.OPSUD ---
Surgery/Procedure H&P Update DATE OF PROCEDURE: July 04, 2024 DATE H&P PERFORMED: 06/05/24 H&P UPDATE INFORMATION: I have reviewed H&P completed within last 30 days, I have examined patient prior to procedure, No changes to prior documentation and H&P is in [facility] EMR on date indicated PLANNED PROCEDURE: Operation Date: 07/04/24 07:00 Proposed Procedures p Colonoscopy 03734, G0105, Z12.11(Not Applicable) - Madan Do MD
--- NOTE | 2024-07-04 06:48 | ANES.PREANE2 ---
Pre-Anesthetic Assessment Height/Weight: Height 1.75 m Weight 131.542 kg Temp Pulse Resp BP Pulse Ox O2 Del Method 97.5 F L 81 16 132/94 95 Room Air 07/04/24 06:06 07/04/24 06:06 07/04/24 06:06 07/04/24 06:06 07/04/24 06:06 07/04/24 06:06 Preop Diagnosis: Screening Operation Date: 07/04/24 07:00 Proposed Procedures p Colonoscopy 06914, G0105, Z12.11(Not Applicable) - Madan Do MD Familial anesthetic complications: none Was Beta Ligia taken within 24 hours: N/A Was Clonidine taken within 24 hours: N/A Last intake: Intake Last Liquid Date 07/03/24 Last Liquid Time 20:00 Last Solid Date 07/02/24 Last Solid Time 20:00 Social No alcohol and No tobacco Exam alert, oriented x 3, clear to auscultation bilaterally and regular rate & rhythm History/ROS No significant history except as noted Pulmonary None reported CV/HEM None reported None reported Hepatic None reported GI None reported Metabolic Morbid Obesity Musc/skel None reported left knee pain d/t torn meniscus Neuropsych None reported Anesthetic Plan ASA status: 2 Medications/Allergies Home Medications ?Medication ?Instructions ?Recorded ?Confirmed ?Last Taken ?Type No Known Home Medications 06/05/24 07/04/24 Unknown History Allergies Allergy/AdvReac Type Severity Reaction Status Date / Time No Known Allergies Allergy Verified 07/01/24 10:07 Current Medications Generic Name Dose Route Start Last Admin Trade Name Freq PRN Reason Stop Dose Admin Sodium Chloride 500 mls @ 999 mls/hr 07/04/24 05:55 07/04/24 06:19 Sodium Chloride 0.9% IV 999 mls/hr .Q31M PRN Administration HYPOTENSION PFSH Anesthesia Medical History COVID-19 Kidney stones Right ureteral stone Spontaneously passed right distal ureteral stone June 2019. Stone risk reduction strategies going forward emphasized. Surgical History History of shoulder surgery right History of tonsillectomy History of umbilical hernia repair (09/09/21) History of wisdom tooth extraction Family History Mother Breast cancer Father Hyperlipidemia Social History Smoking and tobacco/nicotine status: never used tobacco/nicotine Alcohol intake: current Alcohol intake frequency: holidays/special occasions only Marital status: Current occupational status: employed Data Anesthesia Cardiac Studies: Sestamibi Stress Test (Cardiology) 07/12/21
[2024-07-04 07:33] VITALS: BP 121/84; PULSE 78; RESP 21; TEMP 36.1; O2SAT 94
[2024-07-04 07:54] VITALS: BP 125/82; PULSE 75; RESP 18; O2SAT 95
--- NOTE | 2024-07-04 08:15 | ANE.PACU2 ---
Inpatient post-anesthesia follow up: Airway intact: Yes Vital signs: Temperature 97 F Pulse Rate 75 Respiratory Rate 18 Blood Pressure 125/82 Pulse Oximetry 95 Oxygen Delivery Me thod Room Air Oxygen Flow Rate 2 Fraction of Inspir ed Oxygen Hydration adequate: Yes Nausea and vomiting: No Pain level: 1 Mental status: Baseline
== END 2024-07-04 08:15 | disposition home or self-care (01) ==
PROVIDERS: PCP Family Medicine; Visit Provider Surgery
PROC: 0DJD8ZZ Inspection of Lower Intestinal Tract, Via Natural or Artificial Opening Endoscopic (ICD-10-PCS; CPT 45378; principal; 2024-07-04 07:00)
DX: Z12.11 Encounter for screening for malignant neoplasm of colon (principal); D12.0 Benign neoplasm of cecum; D12.4 Benign neoplasm of descending colon; E66.01 Morbid (severe) obesity due to excess calories; Z68.41 Body mass index [BMI] 40.0-44.9, adult; S83.207A Unspecified tear of unspecified meniscus, current injury, left knee, initial encounter; X58.XXXA Exposure to other specified factors, initial encounter
CPT/HCPCS: 45380; 45385; 88305; J2704; J7040

== ENCOUNTER → 2024-07-16 11:15 | Outpatient (BNVA) | payer OTHER, SELFPAY | PROVIDERS: PCP Family Medicine; Visit Provider Student in an Organized Health Care Education/Training Program | DX: M25.562 Pain in left knee (principal); S83.242A Other tear of medial meniscus, current injury, left knee, initial encounter; X50.9XXA Other and unspecified overexertion or strenuous movements or postures, initial encounter; M94.262 Chondromalacia, left knee | CPT/HCPCS: 73560; 73565 ==

== ENCOUNTER 2024-08-15 06:29 | Day surgery (SDC) | payer OTHER, SELFPAY ==
[2024-08-15] VITALS (10 sets, daily range): BP systolic 92–147; BP diastolic 64–105; PULSE 77–86; RESP 16–18; TEMP 36.2–36.3; O2SAT 91–96; BMI 43.8
--- NOTE | 2024-08-15 07:02 | W.PM.OPSUD ---
Surgery/Procedure H&P Update DATE OF PROCEDURE: August 15, 2024 DATE H&P PERFORMED: 07/16/24 H&P UPDATE INFORMATION: I have reviewed H&P completed within last 30 days, I have examined patient prior to procedure and No changes to prior documentation PREOP DIAGNOSIS: Left knee medial meniscus tear, chondromalacia PRIMARY INDICATION FOR PROCEDURE: Left knee medial meniscus tear, chondromalacia PLANNED PROCEDURE: Operation Date: 08/15/24 07:40 Proposed Procedures p knee diagnostic and surgical arthroscopy with partial medial meniscectomy versus repai(Left) - Hermann Mai DO s Chondroplasty(Left) - Hermann Mai DO
[2024-08-15] MEDS: acetaminophen 1,000 MG/100 ML PIGGYBACK 400 MG IV (07:05)
[2024-08-15] MEDS: sodium chloride 0.9% 1,000 ML 30 ML IV (07:06)
[2024-08-15] MEDS: ketorolac 30 mg/mL INJ IVP (07:08)
[2024-08-15] MEDS: scopolamine 1 mg PATCH 1 PATCH TRANSDERMA (07:11)
--- NOTE | 2024-08-15 07:16 | ANES.PREANE2 ---
Pre-Anesthetic Assessment Height/Weight: Height 1.75 m Weight 134.717 kg Temp Pulse Resp BP Pulse Ox O2 Del Method 97.3 F L 83 18 147/105 95 Room Air 08/15/24 06:44 08/15/24 06:44 08/15/24 06:44 08/15/24 07:11 08/15/24 06:44 08/15/24 06:48 Preop Diagnosis: Left knee medial meniscus tear, chondromalacia Operation Date: 08/15/24 07:40 Proposed Procedures p knee diagnostic and surgical arthroscopy with partial medial meniscectomy versus repai(Left) - Hermann Mai DO s Chondroplasty(Left) - Hermann Mai DO Familial anesthetic complications: none Was Beta Ligia taken within 24 hours: N/A Was Clonidine taken within 24 hours: N/A Last intake: Intake Last Liquid Date 08/14/24 Last Liquid Time 19:30 Last Solid Date 08/14/24 Last Solid Time 19:30 Social No alcohol and No tobacco Exam alert, oriented x 3, clear to auscultation bilaterally and regular rate & rhythm Airway Submandibular: within normal limits Cervical ROM: within normal limits Mallampati: Class II Dentition: full History/ROS No significant history except as noted and No significant complaints Pulmonary None reported CV/HEM None reported None reported GI None reported Metabolic Morbid Obesity Musc/skel None reported Neuropsych None reported Anesthetic Plan ASA status: 3 Anesthesia: General and Nurse-admin mod sedation Risk of > 500 ml blood loss (7ml/kg in children): No Other Pertinent Information Thick heavy saleem Medications/Allergies Home Medications ?Medication ?Instructions ?Recorded ?Confirmed ?Last Taken ?Type No Known Home Medications 06/05/24 07/16/24 Unknown History Allergies Allergy/AdvReac Type Severity Reaction Status Date / Time No Known Allergies Allergy Verified 07/16/24 11:07 Current Medications Generic Name Dose Route Start Last Admin Trade Name Freq PRN Reason Stop Dose Admin Sodium Chloride 1,000 mls @ 30 mls/hr 08/15/24 06:30 08/15/24 07:06 Sodium Chloride 0.9% IV 08/16/24 06:29 30 mls/hr .Q24H PETER Administration PFSH Anesthesia Medical History COVID-19 Right ureteral stone Spontaneously passed right distal ureteral stone June 2019. Stone risk reduction strategies going forward emphasized. Kidney stones Surgical History History of umbilical hernia repair (09/09/21) History of wisdom tooth extraction History of shoulder surgery right History of tonsillectomy Family History Mother Breast cancer Father Hyperlipidemia Social History Smoking and tobacco/nicotine status: never used tobacco/nicotine Alcohol intake: current Alcohol intake frequency: holidays/special occasions only Marital status: Current occupational status: employed Data Anesthesia Cardiac Studies: Sestamibi Stress Test (Cardiology) 07/12/21
[2024-08-15] MEDS: ceFAZolin 3,000 MG in sodium chloride 0.9% (plus) 100 ML 200 MG IV (07:45)
[2024-08-15] MEDS: lidocaine-epi 2% PF 1:200,000 20 mL SDV 40 ML XX (08:30)
--- NOTE | 2024-08-15 08:32 | P.BOP_ITS ---
Date of Procedure:08/15/24 Surgeon: Hermann Mai DO Wallpaper Remover Steam(s): Errol Mai PA-C Procedure(s) performed: Left knee diagnostic and surgical arthroscopy with partial medial meniscectomy Left knee diagnostic and surgical arthroscopy with extensive synovectomy (medial lateral patellofemoral compartments) Left knee diagnostic and surgical arthroscopy with medial and patellofemoral compartment chondroplasties Findings of the procedure(s): Patient was found to have a tear in the posterior horn of the medial meniscus the root was intact underwent a partial medial meniscectomy to stable meniscal tissue as well as had extensive synovitis throughout the knee which extensive synovectomy was performed and patient was found to have grade 2-3 chondromalacia on the medial and patellofemoral compartments which underwent chondroplasties. Tolerated procedure well without issues or complications taken back to PACU stable condition. Estimated blood loss: 5 mL Specimen(s) removed: None Post-operative diagnosis: Left knee medial meniscus tear, extensive synovitis, medial and patellofemoral chondromalacia
--- NOTE | 2024-08-15 08:36 | P.OP_ITS ---
Operative Report Date of procedure: August 15, 2024 Surgeon: Hermann Mai DO [facility] Coordinator: Errol Mai PA-C: PA was necessary for assistance in this case with leg positioning, assistance with instrumentation as well as wound closure and dressing application. Procedure: Preoperative diagnosis: Left knee medial meniscus tear, chondromalacia Post-op diagnosis: Left knee medial meniscus tear, extensive synovitis, medial and patellofemoral chondromalacia Procedure done: Left knee diagnostic and surgical arthroscopy with partial medial meniscectomy Left knee diagnostic and surgical arthroscopy with extensive synovectomy (medial lateral patellofemoral compartments) Left knee diagnostic and surgical arthroscopy with medial and patellofemoral compartment chondroplasties Surgeon: Hermann Mai DO Estimated blood loss: 5mL Tourniquet: No tourniquet was used IV fluids: See anesthesia record Complications: None Findings: See operative report narrative Condition: stable Disposition: same day Brief History: Patient is a 43-year-old male with Left?knee?pain.? Patient has failed conservative treatment who has been worked up for Left??knee?pain in the outpatient setting. MRI findings consistent with tear of the medial meniscus. talked in the office about treatment options patient would like to proceed with a Left?knee?diagnostic and surgical arthroscopy with partial medial meniscectomy vs repair and chondroplasty.? Patient understand the ins and outs of the procedure the risk benefits complication alternatives to treatment options.? Understanding risk of surgery they agree to proceed with surgical intervention.? Patient understand this may not provide patient with complete symptomatic relief of? pain as patient does have some underlying arthritis.? Understanding this and patient agree to proceed with surgical intervention all questions answered. Procedure: Patient seen and evaluated in the preoperative holding area.? Consent was reviewed and signed with patient.? Correct extremity was then marked.? Patient seen evaluated Anesthesia Department once cleared for surgery patient was taken back to the operative suite.? Patient was transported onto the OR table in supine position.? All bony prominences well-padded patient was appropriate secured to the bed.? Once appropriately anesthetized a nonsterile tourniquet was applied to the Left thigh.? The Left lower extremity was then prepped and draped in standard orthopedic fashion.? Final timeout performed.? Patient received maira ropriate preoperative antibiotics. Patient received local anesthetic of lidocaine with epinephrine into the joint as well as around the portal sites.? No tourniquet was inflated A standard 2 portal vertical incision diagnostic and surgical arthroscopy of the Left?knee?was performed in standard fashion.? Small stab incision made in the inferolateral portal introduced trocar and arthroscope into the suprapatellar pouch.? Suprapatellar pouch was subsequently visualized and found to have significant synovitis but no loose bodies.? Patient had noticeable significant inflamed infrapatellar fat pad and thickening hypertrophic within the patellofemoral compartment.? ?The medial gutter was free of loose bodies I then introduced the arthroscope into the medial compartment.? Within the medial compartment I then established my inferior medial working portal utilizing spinal needle outside in technique.? Once established I then visualized our articular cartilage of the medial compartment with a valgus stress.? Patient was found to have grade 2- 3chondromalacia throughout the medial compartment.? Next I inspected the meniscus.? With an arthroscopic probe was utilized to visual? all aspects of the meniscus.? Meniscal root was found to be intact.? Meniscus was found to be torn at the body to posterior horn junction.? I then subsequently introduced a basket forceps as well as arthroscopic shaver to perform a partial medial meniscectomy to stable meniscal tissue and then utilized a thermal wand to anneal the edges.? Next, I then performed a synovectomy of the medial compartment.? Given patient's chondromalacia there was areas of unstable articular cartilage and I subsequently performed a chondroplasty with arthroscopic shaver and thermal wand.? This completed medial compartment work. Next a introduced the arthroscope to the intercondylar notch.? PCL and ACL were intact. patient had significant thickening of the infrapatellar fat pad spanning into the medial and lateral compartments.? I then performed an extensive synovectomy with the arthroscopic shaver of the patellofemoral medial and lateral compartments as well as the intercondylar notch. Next I introduced the arthroscope into the lateral compartment the lateral compartment was found to have grade 1 chondromalacia.? Lateral meniscus was found to be intact.? The root was intact.? Given the grade 1 chondromalacia t here is no unstable cartilage pieces to perform chondroplasty.? This completed my work of the lateral compartment and then performed a synovectomy of the lateral compartment.? Next of the arthroscope was placed into the lateral gutter and this was free of loose bodies.? Finally I reintroduced the arthroscope into the patellofemoral compartment.? The patellofemoral was found to have grade 2-3 chondromalacia of the patellofemoral compartment.? Utilized arthroscopic shaver and thermal wand to perform patellofemoral compartment chondroplasty removal of any unstable articular cartilage to stable articular tissue. At this point I utilized arthroscopic shaver as well as thermal wand to perform extensive synovectomy of the patellofemoral compartment. This completed my work of the patellofemoral space.? I then switch my portal sites to the medial working portal.? Completed the rest of my synovectomy and the rest of my examination arthroscopy was normal. All fluid was suctioned from the joint.? ?All instruments were withdrawn.? Portal sites were closed with interrupted nylon suture.? portal sites were then covered with with Xeroform 4 x 4's ABD Curlex and Rony wrap.? Patient was then subsequently awakened from anesthesia and taken to PACU in stable condition. Disposition: Patient taken to PACU in stable condition recovering well.? Will receive appropriate discharge structure as well as pain medication postoperatively as well as? DVT prophylaxis.we will have patient follow-up with us in the office in 2 weeks.? We will weightbearing as tolerated to the Left lower extremity using crutches as needed.? Patient understands and agrees with current plan.? All questions answered.
--- NOTE | 2024-08-15 08:52 | PM.PACU ---
PACU note Narrative: Patient is a 43-year-old male who just underwent a left knee arthroscopy. Pt transferred to PACU in stable condition. Dressing is dry. pt is awake and alert. pt can wiggle toes and plantarflex and dorsiflex foot. pt able to perform straight leg raise, Femoral nerve intact. Distal pulses are palpable toes are warm and well-perfused. Cap refill is normal and under 2 seconds. Sensation to foot is intact. Pain is controlled. Exam: awake Disposition: discharged
--- NOTE | 2024-08-15 09:50 | ANE.PACU2 ---
Inpatient post-anesthesia follow up: Airway intact: Yes Vital signs: Temperature 97.4 F Pulse Rate 80 Respiratory Rate 18 Blood Pressure 128/82 Pulse Oximetry 95 Oxygen Delivery Me thod Room Air Oxygen Flow Rate 8 Fraction of Inspir ed Oxygen Hydration adequate: Yes Nausea and vomiting: No Pain level: 1 Mental status: Baseline
== END 2024-08-15 09:53 | disposition home or self-care (01) ==
PROVIDERS: PCP Family Medicine; Visit Provider Student in an Organized Health Care Education/Training Program
PROC: (CPT 29870; principal; 2024-08-15 07:40)
PROC: (CPT 29881; 2024-08-15 07:40)
PROC: (CPT 29881; 2024-08-15 07:40)
DX: S83.242A Other tear of medial meniscus, current injury, left knee, initial encounter (principal); M79.4 Hypertrophy of (infrapatellar) fat pad; M94.262 Chondromalacia, left knee; M65.962 Unspecified synovitis and tenosynovitis, left lower leg; X50.0XXA Overexertion from strenuous movement or load, initial encounter
CPT/HCPCS: 29881; J0131; J0690; J1885; J2250; J2704; J3010; J7030; J9999

== ENCOUNTER 2024-09-04 09:55 | Outpatient (RCR) | payer OTHER, SELFPAY | END 2024-09-11 23:59 | disposition home or self-care (01) | LOC: SPT 09:55 | PROVIDERS: Visit Provider Physician Assistant | DX: Z98.890 Other specified postprocedural states (principal) | CPT/HCPCS: 97110; 97161 ==

== ENCOUNTER 2024-09-12 05:00 | Outpatient (RCR) | payer OTHER, SELFPAY | END 2024-10-12 23:59 | disposition home or self-care (01) | LOC: SPT 05:00 | PROVIDERS: Visit Provider Physician Assistant | DX: Z98.890 Other specified postprocedural states (principal) | CPT/HCPCS: 97110; 97112 ==

== ENCOUNTER 2024-10-13 05:00 | Outpatient (RCR) | payer OTHER, SELFPAY | END 2024-11-11 23:59 | disposition home or self-care (01) | LOC: SPT 05:00 | PROVIDERS: PCP Family Medicine; Visit Provider Physician Assistant | DX: M23.304 Other meniscus derangements, unspecified medial meniscus, left knee (principal); M25.562 Pain in left knee; R53.1 Weakness | CPT/HCPCS: 97110; 97112 ==

== ENCOUNTER 2024-11-12 05:00 | Outpatient (RCR) | payer OTHER, SELFPAY | END 2024-11-28 09:25 | disposition home or self-care (01) | LOC: SPT 05:00 | PROVIDERS: PCP Family Medicine; Visit Provider Physician Assistant | DX: M23.304 Other meniscus derangements, unspecified medial meniscus, left knee (principal) | CPT/HCPCS: 97110; 97112 ==

== ENCOUNTER → 2025-02-11 10:30 | Outpatient (BNVA) | payer OTHER, SELFPAY | PROVIDERS: PCP Family Medicine; Visit Provider Physician Assistant | DX: Z47.89 Encounter for other orthopedic aftercare (principal); Z98.890 Other specified postprocedural states | CPT/HCPCS: 73560; 73565 ==